=== PATIENT | male | born 1995 | race Two or more races ===

== ENCOUNTER 2016-06-30 06:21 | Emergency (ER) | payer BC ==
[~2016-06-30] VITALS: Ht 185.4 cm; Wt 122.5 kg
[2016-06-30 06:30] VITALS: BP 145/80
[2016-06-30] MEDS ORDERED: NKM (06:33)
[2016-06-30] MEDS ORDERED: BACITRACIN ZIN1 EACH TOPIC (06:39)
[2016-06-30] MEDS ORDERED: Bacitracin Oint UD TOPIC ONE (06:42)
[2016-06-30 06:45] VITALS: BP 145/80
--- NOTE | 2016-07-05 04:08 | Emergency Room Report ---
History of Present Illness General Chief Complaint: Skin Rash/Abscess Source: Patient Present Illness HPI Patient is a 21-year-old male presented after having increased difficulty redness to his arms. Patient stated that he had prior history of IV drug use. Patient stated that he had noticed some red huff to his arms. He denied any recent trauma. Patient reports having concerned that he had a blood infection. Patient had not been having any fever. Allergies: Coded Allergies: No Known Allergies (Unverified , 06/30/16) Patient History Past Medical History: see triage record Reviewed Nursing Documentation: PMH: Agreed, PSxH: Agreed Review of Systems All Other Systems: negative except mentioned in HPI Physical Exam Vital Signs Date Time Temp Pulse Resp B/P Pulse Ox O2 Delivery O2 Flow Rate FiO2 06/30/16 06:27 98.6 110 15 145/80 97 Room Air General Appearance: well appearing, no apparent distress, alert, GCS 15 Head: normocephalic, atraumatic ENT: hearing grossly normal, normal voice Neck: full range of motion, supple Respiratory: no respiratory distress, speaking full sentences Gastrointestinal: normal inspection, non tender Musculoskeletal: normal inspection, back normal, digits/nails normal, no calf tenderness Neurologic: normal inspection, alert, oriented x3, normal gait Psychiatric: mood/affect normal Skin: no rash, other - abrasions to bilateral extremities, linear, superficial. Medical Decision Making Diagnostic Impression: Primary Impression: Multiple excoriations ER Course The patient presented for skin rash. Differential diagnosis included was not limited to lymphangitis, abrasion, excoriation among others. Patient's benign exam and does not appear to require any further imaging or laboratory testing at this time. Patient showed no evidence of serious infection. The patient's skin lesions appear to be linear abrasion which are mild superficial. The patient is advised to follow up with primary care doctor in 1-2 days. Patient is advised to return if any worsening condition or if any changes in status that are concerning. Last Vital Signs Date Time Temp Pulse Resp B/P Pulse Ox O2 Delivery O2 Flow Rate FiO2 06/30/16 06:45 98.6 15 145/80 97 Room Air 06/30/16 06:27 110 Status: improved Disposition: HOME, SELF-CARE Condition: Stable Scripts Bacitracin Zinc* (BACITRACIN ZINC*) 1 Each Packet 1 APPLIC TOPIC THREE TIMES A DAY, #30 PACKET Prov: Desmond Richard 06/30/16 Referrals: NOT CHOSEN IPA/MD,REFERRING (PCP) Patient Instructions: Abrasion, [id number] Desmond Richard Jul 05, 2016 04:08
== END 2016-06-30 07:00 | disposition home or self-care (01) ==
LOC: EMR 07:00
DX: S40.812A Abrasion of left upper arm, initial encounter (principal); S40.811A Abrasion of right upper arm, initial encounter; X58.XXXA Exposure to other specified factors, initial encounter; Y92.9 Unspecified place or not applicable
CPT/HCPCS: 99282